=== PATIENT | female | born 1990 | race Two or more races ===

== ENCOUNTER 2021-03-03 05:58 | Inpatient (IN) | payer OTHER ==
[~2021-03-03] VITALS: Ht 172.7 cm; Wt 3.2 kg
[~2021-03-03 05:58] MED LIST: TYLENOL-CODEINE1 TAB PO
[2021-03-03] MEDS ORDERED: SYNTHROID200 MCG PO (07:52)
[2021-03-03] MEDS ORDERED: FOLIC ACID0.8 M1 PO (07:53)
[2021-03-03] MEDS ORDERED: PRENATAL TABLE1 EAC1 PO (07:53)
[2021-03-03] MEDS ORDERED: NIFEDIPINE ER30 M1 (14:31)
[2021-03-03] MEDS ORDERED: INTEGRA PLUS C1 EACH (14:32)
== END 2021-03-05 18:05 | disposition home or self-care (01) | DRG 788 ==
LOC: SURG-SUITE 05:58 → LDR 05:58 → OB/GYN 11:16 → SURG-SUITE 12:21
PROVIDERS: ADMIT Specialist; ATTEND Specialist
PROC: 4A1HXFZ Monitoring of Products of Conception, Cardiac Rhythm, External Approach (ICD-10-PCS; 2021-03-03)
PROC: 10D00Z1 Extraction of Products of Conception, Low, Open Approach (ICD-10-PCS; principal; 2021-03-03 10:00)
DX: O64.8XX0 Obstructed labor due to other malposition and malpresentation, not applicable or unspecified (principal); O99.284 Endocrine, nutritional and metabolic diseases complicating childbirth; E03.9 Hypothyroidism, unspecified; O26.893 Other specified pregnancy related conditions, third trimester; Z67.11 Type A blood, Rh negative; Z3A.38 38 weeks gestation of pregnancy; Z37.0 Single live birth

== ENCOUNTER 2021-03-25 10:08 | Outpatient (CLI) | payer OTHER ==
[~2021-03-25 10:08] MED LIST changes: +FOLIC ACID0.8 M1 PO; +INTEGRA PLUS C1 EACH; +NIFEDIPINE ER30 M1; +PRENATAL TABLE1 EAC1 PO; +SYNTHROID200 MCG PO
== END 2021-03-25 10:17 | disposition home or self-care (01) ==
LOC: RAD 10:08
PROVIDERS: ATTEND Orthopaedic Surgery Orthopaedic Surgery of the Spine
DX: M41.85 Other forms of scoliosis, thoracolumbar region (principal)

== ENCOUNTER 2024-02-17 04:37 | Inpatient (IN) | payer OTHER ==
[~2024-02-17] VITALS: Ht 172.7 cm; Wt 3.6 kg
[2024-02-17 04:55] VITALS: BP 90/61; BP 90/64
[2024-02-17] MEDS ORDERED: PRENATAL TABLE1 EAC1 (05:38)
[2024-02-17] MEDS ORDERED: SYNTHROID200 MCG PO (05:38)
[2024-02-17] MEDS ORDERED: CEFAZOLIN SODIUM 1,000 MG VIAL IV SCH ×2 (05:45→14:00)
[2024-02-17] MEDS ORDERED: RINGERS SOLUTION,LACTATED 1,000 ML IV SCH (05:45)
[2024-02-17 06:02] VITALS: BP 99/63; O2SAT 99
[2024-02-17 07:04] VITALS: BP 99/64
[2024-02-17] MEDS ORDERED: ERYTHROMYCIN BASE OPHT 1GM EACH TUBE OP ONE (08:15)
[2024-02-17] MEDS ORDERED: OXYTOCIN 10 UNITS/ML VIAL IV ONE (08:15)
[2024-02-17] MEDS ORDERED: MORPHINE SULFATE 4 MG/ML VIAL IV ONE ×2 (10:45→11:30)
[2024-02-17] MEDS ORDERED: MEPERIDINE HCL/PF 50 MG/ML VIAL IM SCH (11:30)
[2024-02-17] MEDS ORDERED: MEPERIDINE HCL/PF 25 MG,MEPERIDINE HCL/PF 50 MG IM SCH (11:30)
[2024-02-17] MEDS ORDERED: PROMETHAZINE HCL 25 MG/ML AMPUL IV SCH (14:00)
[2024-02-17 15:37] VITALS: BP 129/87
[2024-02-17 17:25] VITALS: BP 122/75
[2024-02-18 00:10] VITALS: BP 91/50
[2024-02-18 05:00] VITALS: BP 100/62
[2024-02-18] MEDS ORDERED: LEVOTHYROXINE SODIUM 200 MCG TABLET PO SCH (06:00)
[2024-02-18 07:33] LABS: HEMATOCRIT 28.1 % (36.0-45.00); HEMOGLOBIN 9.4 g/dL (12.0-15.00); MEAN CELL VOLUME 76.8 fL (80.00-100.00); MEAN CORPUSCULAR HEMOGLOBIN 25.8 pg (27.00-32.0); MEAN CORPUSCULAR HGB CONC 33.6 g/dl (32.0-36.0); PLATELET COUNT 174 K/uL (150-450); RED BLOOD COUNT 3.66 M/uL (4.00-6.00)
[2024-02-18] MEDS ORDERED: OxyCODONE HCL/APAP UD (PERCOCET) PO PRN (08:30)
[2024-02-18] MEDS ORDERED: ACETAMINOPHEN 500 MG GEL..CAP PO SCH (12:00)
[2024-02-18 14:05] VITALS: BP 104/63
[2024-02-18] MEDS ORDERED: IRON FUM,PS/FOLIC/BCOMP,C NO.9 1 CAP CAPSULE PO STA (14:19)
[2024-02-18 16:00] VITALS: BP 101/68
[2024-02-18 23:55] VITALS: BP 98/63
[2024-02-19 05:00] VITALS: BP 114/64
[2024-02-19 08:15] VITALS: BP 115/73
[2024-02-19] MEDS ORDERED: IRON FUM,PS/FOLIC ACID/VITC/B3 1 CAP CAPSULE PO SCH (09:00)
[2024-02-19] MEDS ORDERED: FF) RHO(D) IMMUNE GLOBULIN (POM) IM STA (14:09)
[2024-02-19] MEDS ORDERED: IRON FUM,PS/FOLIC/BCOMP,C NO.9 1 CAP CAPSULE PO SCH (17:00)
[2024-02-20] MEDS ORDERED: LEVOTHYROXINE SODIUM 200 MCG TABLET PO SCH (09:00)
== END 2024-02-19 16:31 | disposition home or self-care (01) | DRG 788 ==
LOC: LDR → OB/GYN 04:37 → LDR 04:37 → OB/GYN 09:47
PROVIDERS: ADMIT Specialist; ATTEND Specialist
PROC: 0UB10ZZ Excision of Left Ovary, Open Approach (ICD-10-PCS; 2024-02-17)
PROC: 4A1HXCZ Monitoring of Products of Conception, Cardiac Rate, External Approach (ICD-10-PCS; 2024-02-17)
PROC: 10D00Z1 Extraction of Products of Conception, Low, Open Approach (ICD-10-PCS; principal; 2024-02-17 11:15)
DX: O34.211 Maternal care for low transverse scar from previous cesarean delivery (principal); O34.83 Maternal care for other abnormalities of pelvic organs, third trimester; D27.1 Benign neoplasm of left ovary; Z3A.38 38 weeks gestation of pregnancy; Z37.0 Single live birth